=== PATIENT | male | born 1955 | race Caucasian/White ===

== ENCOUNTER → 2022-12-18 12:14 | Outpatient (CLI) | payer BC, MEDICARE, SELFPAY ==
--- NOTE | ~2022-12-18 | US_ITS ---
EXAMINATION: US venous doppler LE RT DATE: 12/18/2022 12:41 INDICATION: Right lower limb pain and swelling. TECHNIQUE: Grayscale ultrasound images without and with compression and Doppler ultrasound images of the right lower extremity veins were obtained. COMPARISON: None. FINDINGS: The visualized portions of right common femoral vein, profunda (deep) femoral vein, femoral vein, pop liteal vein, peroneal veins, posterior tibial veins, and greater saphenous vein outflow are patent. T here is a large Bourgeois's cyst measuring 6.7 x 2.5 x 5.5 cm . IMPRESSION: 1. No deep venous thrombosis. 2. Large Bourgeois's cyst. Reviewed, dictated and finalized at location A.
== END ==
PROVIDERS: PCP Family Medicine; Visit Provider Physician Assistant
DX: M79.604 Pain in right leg (principal); M79.89 Other specified soft tissue disorders; M71.21 Synovial cyst of popliteal space [Baker], right knee
CPT/HCPCS: 93971